=== PATIENT | male | born 1945 | race Caucasian/White ===

== ENCOUNTER 2020-08-30 14:39 | Emergency (ER) | payer OTHER, SELFPAY ==
[2020-08-30 15:09] VITALS: BP 107/69; PULSE 76; RESP 16; TEMP 36.6; O2SAT 98; BMI 22.1
[2020-08-30 16:17] VITALS: BP 140/77; PULSE 71; O2SAT 97
[2020-08-30 16:22] LABS: Basophils % 0.3 %; Eosinophils # 0.4 10^3/uL (0.0-0.8); Eosinophils % 4.3 %; Hematocrit 33.7 % (42.0-52.0); Hemoglobin 10.4 g/dL (11.7-16.6); Lymphocytes # 0.9 10^3/uL (0.8-4.8); Lymphocytes % 9.9 %; Mean Corpuscular HGB Conc 30.9 g/dL (30.0-36.0); Mean Corpuscular Hemoglobin 28.6 pg (28.0-34.0); Mean Corpuscular Volume 92.6 fL (80-94); Mean Platelet Volume 9.8 fL (7.4-10.4); Monocytes # 0.9 10^3/uL (0.2-0.9); Monocytes % 10.5 %; Neutrophils % 74.7 %; Nucleated Red Blood Cells % 0 %; Platelet Count 243 10^3/cmm (130-400); Red Blood Count 3.64 10^6/uL (4.1-5.3); Red Cell Distribution Width 13.2 % (12.1-15.1); White Blood Count 8.6 10^3/uL (4.0-10.0)
--- NOTE | 2020-08-30 16:31 | W.ED.ABDPA2 ---
HPI - Abdominal Pain General: Chief Complaint: Abdominal Pain Stated Complaint: L side ABD pain Time Seen by Provider: 08/30/20 15:58 History of Present Illness: HPI narrative: 75-year-old male presents emergency room with complaints of abdominal pain has been going on for the last month. Abdominal and back pain has had some sore throat and nausea. Patient has a history of esophageal CA and previously had an pull-through. At times he has had stricture of his pull-through and has been dilated multiple times he has been having some difficulty with swallowing where at times he held food bolus stuck and he will either eventually get it to pass other times it will just vomit back up he denies any hematemesis or coffee-ground emesis. He had an ultrasound at his primary care doctor's office which showed some sort of spot on the liver or sludge in the gallbladder. He was advised he needed an MRI but could not have one because of a pacemaker his doctor supposed order CT but he is visiting from [place] and has not been able to get it scheduled. MD elicited complaint: abdominal pain Pertinent past history: other (Previous esophageal CA) Onset (ago): week(s) Pain Consistency: intermittent Location: Diffuse Severity: mild Quality: cramping Radiation: none Migration to: no migration Relieving factors: nothing Associated Symptoms: Reports bloating, GI cramping, dyspepsia, dysuria, nausea, poor appetite and vomiting; Denies anorexia, belching, change in bowel habits, change in stool character, chills, coffee ground emesis, constipation, diarrhea, excessive flatus, fever(s), heartburn, hematochezia, hematuria, hematemesis, fecal incontinence, loose stools, melena and syncope Review of Systems Const: Denies: fever(s) or chills ENMT: Denies: throat pain, ear or mastoid pain, nasal discharge or nasal congestion Card: Denies: syncope Resp: Denies: dyspnea, productive cough or non-productive cough GI: Reports: nausea, vomiting, bloating and GI cramping; Denies: hematemesis, coffee ground emesis, heartburn, diarrhea, constipation, belching, excessive flatus, fecal incontinence, change in bowel habits, change in stool character, hematochezia or melena : Reports: dysuria; Denies: hematuria Skin/Breast: Denies: rash or pruritus Physical Exam Const: COMMON NORMALS: no acute distress GENERAL APPEARANCE: cooperative and comfortable ORIENTATION/CONSCIOUSNESS: Yes awake, Yes oriented to person, Yes oriented to place and Yes oriented to time HENMT: COMMON NORMALS: normocephalic, atraumatic and hearing grossly normal bilaterally HEAD & SCALP: normocephalic and atraumatic Neck/C-Spine: COMMON NORMALS: no JVD Resp: COMMON NORMALS: normal respiratory effort, No retractions, No use of accessory muscles and clear to auscultation bilaterally AUSCULTATION: clear to auscultation bilaterally Cardio: COMMON NORMALS: no JVD, regular rate, regular rhythm and No murmurs present (Cardio) RATE: regular rate RHYTHM: regular rhythm GI: COMMON NORMALS: Soft to palpation and No hepatosplenomegaly present AUSCULTATION: Yes normoactive bowel sounds PALPATION: Yes Soft to palpation, No Tenderness to palpation present (GI), No Guarding due to palpation present (GI) and Yes No hepatosplenomegaly present Extremity: COMMON NORMALS: normal to inspection, capillary refill normal, no clubbing, cyanosis or edema, no calf tenderness and no pedal edema Neuro: SENSORIUM/ORIENTATION: Yes oriented to person, Yes oriented to place and Yes oriented to time Skin: COMMON NORMALS: no rashes or lesions noted GENERAL SKIN EXAM: no rashes or lesions noted Course Vital Signs: Vital signs: Vital Signs Temperature 97.9 F 08/30/20 15:09 Pulse Rate 70 08/30/20 18:36 Respiratory Rate 15 08/30/20 18:36 Blood Pressure 125/70 08/30/20 18:36 Pulse Oximetry 95 08/30/20 18:36 MDM - Abdominal Pain MDM Narrative: Medical decision making narrative: CT findings are very concerning for cancer with metastatic lesions. Difficult to tell if it originated in the liver or the lung, the lungs are Seem to be more likely. Reviewed the CT findings the patient and we gave him a hard copy of the CTs and the reports as well as his labs. He is from [place] encouraged him to follow-up with his primary care doctor as soon as he is able if he wishes to have these further evaluated. Reviewed laboratory findings as well. Patient given opportunity to ask questions which were answered to the best of my ability, patient advised that if he would need tissue biopsy to have definitive diagnosis. Lab Data: Labs: Lab Results 08/30/20 08/30/20 08/30/20 Range/Units 16:14 16:14 16:35 WBC 8.6 (4.0-10.0) 10^3/ uL RBC 3.64 L (4.1-5.3) 10^6/u L Hgb 10.4 L (11.7-16.6) g/dL Hct 33.7 L (42.0-52.0) % MCV 92.6 (80-94) fL MCH 28.6 (28.0-34.0) pg MCHC 30.9 (30.0-36.0) g/dL RDW 13.2 (12.1-15.1) % Plt Count 243 (130-400) 10^3/c mm MPV 9.8 (7.4-10.4) fL Neut % (Auto) 74.7 % Lymph % (Auto) 9.9 % [place] % (Auto) 10.5 % Eos % (Auto) 4.3 % Baso % (Auto) 0.3 % Neut # (Auto) 6.40 (1.8-7.7) 10^3/u L Lymph # (Auto) 0.9 (0.8-4.8) 10^3/u L [place] # (Auto) 0.9 (0.2-0.9) 10^3/u L Eos # (Auto) 0.4 (0.0-0.8) 10^3/u L Baso # (Auto) 0.0 (0.0-0.1) 10^3/u L Nucleated RBC % (a uto) 0 % Nucleated RBCs # 0.0 /100WBC Sodium 136 (136-145) mmol/L Potassium 4.5 (3.5-5.1) mmol/L Chloride 98 (98-107) mmol/L Carbon Dioxide 28 (22-29) mmol/L Anion Gap 14.5 (5-19) BUN 10 (8-23) mg/dL Creatinine 0.8 (0.7-1.2) mg/dL GFR Calculation Not Reportable Glucose 94 (65-115) mg/dL Calculated Osmolal ity 281 L (285-295) mOsm/k g Calcium 8.9 (8.5-10.5) mg/dL Total Bilirubin 0.4 (0.15-1.2) mg/dL AST 11 (0-40) U/L ALT 6 (0-41) U/L Alkaline Phosphata se 152 H (40-130) IU/L Total Protein 7.2 (6.6-8.7) g/dL Albumin 3.7 (3.5-5.2) g/dL Globulin 3.5 (1.3-4.6) g/dL Lipase 9 L (13-60) U/L Urine Color Yellow (Yellow) Urine Appearance Clear (CLEAR) Urine pH 7 (5-7) Ur Specific Gravit y 1.010 (1.005-1.030) Urine Protein Neg (Negative) Urine Glucose (UA) Norm (Normal) Urine Ketones Negative (Negative) Urine Blood 3+ H (Negative) Urine Nitrate Negative (Negative) Urine Bilirubin Neg (Negative) Urine Urobilinogen 1 H (Negative) mg/dL Ur Leukocyte Sherron ase 1+ H (Negative) Urine RBC 15-25 H (0-2) /hpf Urine WBC 0-4 H (0-5) /hpf Ur Squamous Epith Cells None (0-5) /hpf Amorphous Sediment Not Reportable Urine Bacteria Trace (NONE) /hpf Discharge Plan Discharge Patient Disposition: Home Clinical Impression: Mass of right lung, Liver mass, Hx of esophageal malignancy Condition: Stable Prescriptions: No Action latanoprost 0.005 % drops 1 drp ophthalmic (eye) DAILY RF: 0 vitamin E 100 unit Capsule 100 unit PO DAILY RF: 0 Vitamin B-12 1,000 mcg Tablet 1,000 mcg PO DAILY RF: 0 Vitamin C 500 mg Tablet 500 mg PO DAILY RF: 0 tamsulosin 0.4 mg capsule 0.4 mg PO DAILY RF: 0 levothyroxine 50 mcg tablet 50 mcg PO DAILY RF: 0 pantoprazole 40 mg tablet,delayed release (DR/EC) 40 mg PO BID RF: 0 iron 325 mg (65 mg iron) Tablet 325 mg PO DAILY RF: 0 coenzyme Q10 200 mg Tablet 200 mg PO DAILY RF: 0 brimonidine 0.2 % drops 1 drp ophthalmic (eye) BID RF: 0 albuterol sulfate 90 mcg/actuation Hfa Aerosol Inhaler 1 inh INHALATION QID PRN (Reason: Shortness Of Breath) RF: 0 omar (Zingiber officinalis) 500 mg Capsule 500 mg PO DAILY RF: 0 fluticasone propionate 50 mcg/actuation spray,suspension 2 spray INTRANASAL DAILY PRN (Reason: Nasal Congestion) RF: 0 finasteride 5 mg tablet 5 mg PO DAILY RF: 0 Vitamin D3 25 mcg (1,000 unit) Capsule 25 mcg PO DAILY RF: 0 escitalopram oxalate 10 mg tablet 10 mg PO DAILY RF: 0 alfuzosin 10 mg tablet extended release 24 hr 10 mg PO DAILY RF: 0 oxycodone 20 mg tablet 20 mg PO QID PRN (Reason: Pain) RF: 0 Eliquis 5 mg tablet 5 mg PO BID RF: 0 turmeric 400 mg Capsule 400 mg PO DAILY RF: 0 Discharge Orders: Discharge ED (Routine); Ordered 08/30/20 Ordered By: Kam Galvin Patient Instructions: Opioid Safety Activity Restrictions/Additional Instructions: Recommend you follow-up with your primary care doctor as soon as you are able. At discharge will be given copies of the CT and the CT reports and labs done in the emergency room today. Coding Level of Care Code ED News Camera Person for Fidelina Fwd Exam Comprehensive
[2020-08-30 16:39] LABS: Alanine Aminotransferase 6 U/L (0-41); Albumin Level 3.7 g/dL (3.5-5.2); Alkaline Phosphatase 152 IU/L (40-130); Anion Gap 14.5 (5-19); Aspartate Amino Transferase 11 U/L (0-40); Blood Urea Nitrogen 10 mg/dL (8-23); Calcium 8.9 mg/dL (8.5-10.5); Carbon Dioxide 28 mmol/L (22-29); Chloride 98 mmol/L (98-107); Globulin 3.5 g/dL (1.3-4.6); Glucose 94 mg/dL (65-115); Lipase 9 U/L (13-60); Osmolality Calculated 281 mOsm/kg (285-295); Potassium 4.5 mmol/L (3.5-5.1); Sodium 136 mmol/L (136-145); Total Bilirubin 0.4 mg/dL (0.15-1.2); Total Protein 7.2 g/dL (6.6-8.7)
[2020-08-30 16:41] VITALS: BP 131/84; PULSE 76; O2SAT 95
--- NOTE | 2020-08-30 17:02 | CTR_ITS ---
PROCEDURE INFORMATION: Exam: CT Abdomen And Pelvis With Contrast Exam date and time: 08/30/2020 5:02 PM Age: 75 years old Clinical indication: Nausea and vomiting; Abdominal pain; Localized; Left upper quadrant (luq); Prior surgery; Surgery type: Pacemaker; Patient HX: Recent kidney infection; Additional info: Abd pain TECHNIQUE: Imaging protocol: Computed tomography of the abdomen and pelvis with contrast. Radiation optimization: All CT scans at this facility use at least one of these dose optimization techniques: automated exposure control; mA and/or kV adjustment per patient size (includes targeted exams where dose is matched to clinical indication); or iterative reconstruction. Contrast material: OMNI 300; Contrast volume: 95 ml; Contrast route: INTRAVENOUS (IV); COMPARISON: No relevant prior studies available. RADIATION DOSE METRICS: Total DLP (mGy-cm): 791.25 FINDINGS: Lungs: 3.6 cm enhancing nodule in the posterior right lower lobe with central low density. Small right pleural effusion with extension into the major fissure. Coarse interstitial opacities throughout the right lung base. Liver: 4.4 cm irregular peripherally enhancing lesion in the inferior right liver lobe with adjacent 3.4 cm solid enhancing nodule. Fluid density cyst in the right lobe, Hounsfield units less than 20. Two small rim enhancing lesions adjacent to the right liver capsule measuring 2.2 cm and 1.0 cm. Gallbladder and bile ducts: Normal. No calcified stones. No ductal dilation. Pancreas: Normal. No ductal dilation. Spleen: Normal. No splenomegaly. Adrenal glands: Normal. No mass. Kidneys and ureters: Multiple left renal calculi measuring up to 1.4 cm. No ureteral calculus or hydronephrosis. The right kidney is normal. Stomach and bowel: Large hiatal/gastric hernia. Diverticulosis of the left colon. No diverticulitis. Appendix: The appendix is visualized and is normal. Intraperitoneal space: Unremarkable. No free air. No significant fluid collection. Vasculature: Atherosclerotic calcifications. No aneurysm. Lymph nodes: Unremarkable. No enlarged lymph nodes. Urinary bladder: Unremarkable as visualized. Reproductive: Enlarged inhomogenous prostate. Bones/joints: Lumbar scoliosis with degenerative changes and degenerative subluxations. No fracture. No lytic or destructive lesion. Benign bone island in the left acetabulum. Soft tissues: Small fat containing left inguinal hernia. CT/CT abdomen pelvis w con* [id number] IMPRESSION: 1. 4.4 cm and adjacent 3.4 cm liver nodules. The larger of these nodules has central low density, most likely necrosis. This is suspicious for primary or metastatic neoplasm. 2. Two rim enhancing lesions along the right liver capsule, the largest measuring 2.2 cm. These could represent pleural versus peritoneal metastatic lesions. 3. 3.6 cm enhancing pulmonary nodule in the right lower lobe with central necrosis. This could represent primary versus metastatic malignant neoplasm. Highly suspicious nodule(s). Consider non-emergent PET/CT, or tissue sampling.(Reference: Debbie) 4. Small right pleural effusion. A malignant effusion is not excluded. 5. Edema versus pneumonia in the right lung base. 6. Nonobstructing left renal calculi. References: Debbie Montes De Oca, et al. Guidelines for Management of Incidental Pulmonary Nodules Detected on CT Images: From the Fleischner Society 2017. Radiology. 2017;284(1):228-243. Radiation Dose CTDIVOL = (mGy): DLP = 791.25 (mGy-cm)
[2020-08-30 17:18] LABS: Add Urine Microscopic? YES; Bacteria Urine TRACE /hpf; Bilirubin Urine Neg (Negative); Blood Urine 3+ (Negative); Glucose Urine UA Norm (Normal); Ketones Urine Negative (Negative); Leukocyte Esterase Urine 1+ (Negative); Nitrate Urine Negative (Negative); Protein Urine Neg (Negative); RBC Urine 15-25 /hpf (0-2); Urine Appearance Clear (CLEAR); Urine Color Yellow (Yellow); Urobilinogen Urine 1 mg/dL (Negative); WBC Urine 0-4 /hpf (0-5); pH Urine 7 (5-7)
[2020-08-30 17:19] LABS: Add Urine Culture? Yes
[2020-08-30] MEDS: iohexol 300 mg/mL 100 mL Btl IV ×2 (17:25→17:48)
--- NOTE | 2020-08-30 17:34 | CTR_ITS ---
PROCEDURE INFORMATION: Exam: CT Chest With Contrast; Diagnostic Exam date and time: 08/30/2020 5:34 PM Age: 75 years old Clinical indication: Abnormal findings; Abnormal radiologic exam of lung or chest; Prior surgery; Surgery type: Pacemaker; Additional info: Chest mass. Prior history of esophageal cancer with esophagectomy and gastric pull-through. TECHNIQUE: Imaging protocol: Diagnostic computed tomography of the chest with contrast. Radiation optimization: All CT scans at this facility use at least one of these dose optimization techniques: automated exposure control; mA and/or kV adjustment per patient size (includes targeted exams where dose is matched to clinical indication); or iterative reconstruction. Contrast material: OMNI 300; Contrast volume: 75 ml; Contrast route: INTRAVENOUS (IV); COMPARISON: CT abdomen pelvis w con* [id number] 08/30/2020 5:23 PM RADIATION DOSE METRICS: Total DLP (mGy-cm): 473.8 FINDINGS: Tubes, catheters and devices: Left-sided pacemaker with leads in the heart. Lungs: Severe emphysema. Coarse interstitial opacities in the inferior right lower lobe. Scattered interstitial scarring in both lungs. 3.6 cm irregular enhancing nodule in the posterior right lower lobe with central hypodensity. Pleural spaces: Small posterior right pleural effusion with extension into the major fissure. Trace left pleural effusion. Two adjacent rim enhancing lesions adjacent to the right liver lobe measuring 2.2 cm and 1.0 cm. Heart: Mild cardiomegaly. Mediastinal space: Esophagectomy with gastric pull-through procedure. Aorta: Unremarkable. No aortic aneurysm. Lymph nodes: Multiple enlarged middle and anterior mediastinal lymph nodes measuring up to 1.8 cm short axis. Bones/joints: Scoliosis. No fracture or destructive bone lesion identified. Soft tissues: Unremarkable. CT/CT chest w con* [id number] IMPRESSION: 1. 3.6 cm enhancing nodule in the posterior right lower lobe with probable central necrosis. This could represent primary or metastatic malignant neoplasm.Highly suspicious nodule(s). Consider non-emergent PET/CT, or tissue sampling.(Reference: Debbie) 2. Two rim enhancing lesions along the right liver capsule. These could represent pleural versus peritoneal metastatic lesions. 3. Prominent mediastinal lymph nodes. Metastatic disease is not excluded. 4. Small right and trace left pleural effusions. A malignant right effusion is not excluded. References: MacMahon H, et al. Guidelines for Management of Incidental Pulmonary Nodules Detected on CT Images: From the Fleischner Society 2017. Radiology. 2017;284(1):228-243. Radiation Dose CTDIVOL = (mGy): DLP = 473.8 (mGy-cm)
[2020-08-30 17:41] VITALS: O2SAT 95
[2020-08-30 18:36] VITALS: BP 125/70; PULSE 70; RESP 15; O2SAT 95
== END 2020-08-30 18:37 | disposition home or self-care (01) ==
PROVIDERS: Emergency Provider Family Medicine
DX: R91.8 Other nonspecific abnormal finding of lung field (principal); R16.0 Hepatomegaly, not elsewhere classified; Z85.01 Personal history of malignant neoplasm of esophagus; Z79.01 Long term (current) use of anticoagulants
CPT/HCPCS: 71260; 74177; 80053; 81001; 83690; 85025; 87077; 87086; 87186; 99283; Q9967